=== PATIENT | male | born 1950 | race American Indian/Alaskan Native ===

== ENCOUNTER 2023-07-26 18:59 | Emergency (ER) | payer MEDICARE, OTHER ==
[2023-07-26] MEDS ORDERED: Norepinephrine Bit/D5W Premix 4 MG in Premix Bag 1 BAG IV SCH (19:15)
== END 2023-07-26 20:02 ==
LOC: JP.ED 18:59
DX: U07.1 COVID-19 (principal); N18.6 End stage renal disease; Z99.0 Dependence on aspirator; Z91.041 Radiographic dye allergy status; Z88.0 Allergy status to penicillin; Z88.1 Allergy status to other antibiotic agents
CPT/HCPCS: 96365; 99285-25